=== PATIENT | male | born 1990 | race Caucasian/White ===

== ENCOUNTER 2018-06-29 15:16 | Emergency (ER) | payer OTHER ==
--- NOTE | 2018-06-29 15:31 | PDOC ---
Rapid Medical Evaluation Time Seen by Provider: 06/29/18 15:30 Medical Evaluation: 06/29/18 15:30 I have performed a brief in-person evaluation of this patient. 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 Discharge Disposition - Diagnosis Strain of fascia at thorax level - Referrals - Patient Instructions - Post Discharge Activity
[2018-06-29 15:33] VITALS: BP 112/70; PULSE 64; TEMP 98.3; BMI 26.6
[2018-06-29] MEDS ORDERED: KETOROLAC TROMETHAMINE 60 MG/2 ML VIAL IM ONE (16:37)
[2018-06-29] MEDS ORDERED: KETOROLAC TROMETHAMINE 60 MG/2 ML VIAL ONE ×2 (16:39→16:44)
--- NOTE | 2018-06-29 16:40 | PDOC ---
History of Present Illness - General Chief Complaint: Back Pain Stated Complaint: LOWER BACK PAIN Time Seen by Provider: 06/29/18 15:30 History Source: Patient Exam Limitations: No Limitations Past History - Travel Traveled outside of the country in the last 30 days: No Close contact w/someone who was outside of country & ill: No - Past Medical History Home Medications: Ambulatory Orders Cyclobenzaprine HCl [Flexeril -] 10 mg PO HS #10 tablet 06/29/18 Ibuprofen 800 mg PO TID #30 tablet 06/29/18 COPD: No - Suicide/Smoking/Psychosocial Hx Smoking History: Never smoked Have you smoked in the past 12 months: No Information on smoking cessation initiated: No Hx Alcohol Use: No Drug/Substance Use Hx: No Review of Systems - Review of Systems Able to Perform ROS?: Yes Comments:: 06/29/18 16:36 CONSTITUTIONAL: Absent: fever, chills, diaphoresis, generalized weakness, malaise, loss of appetite GASTROINTESTINAL: Absent: abdominal pain, abdominal distension, nausea, vomiting, diarrhea, constipation, melena, hematochezia GENITOURINARY: Absent: dysuria, frequency, urgency, hesitancy, hematuria, flank pain, genital pain MUSCULOSKELETAL: Present: low back pain Absent: arthralgia, joint swelling SKIN: Absent: rash, itching, pallor NEUROLOGIC: Absent: headache, focal weakness or paresthesias, dizziness, unsteady gait, seizure, mental status changes, bladder or bowel incontinence PSYCHIATRIC: Absent: anxiety, depression, suicidal or homicidal ideation, hallucinations. Is the patient limited Polish proficient: No *Physical Exam - Vital Signs Last Vital Signs Temp Pulse Resp BP Pulse Ox 98.3 F 64 18 112/70 100 06/29/18 15:31 06/29/18 15:31 06/29/18 15:31 06/29/18 15:31 06/29/18 15:31 - Physical Exam Comments: 06/29/18 16:36 GENERAL: Well developed, well nourished. Awake and alert. No acute distress. HEENT: Normocephalic, atraumatic. PERRLA, EOMI. No conjunctival pallor. Sclera are non- icteric. Moist mucous membranes. Oropharynx is clear. NECK: Supple. Full ROM. No JVD. Carotid pulses 2+ and symmetric, without bruits. No thyromegaly. No lymphadenopathy. CARDIOVASCULAR: Regular rate and rhythm. No murmurs, rubs, or gallops. Distal pulses are 2+ and symmetric. PULMONARY: No evidence of respiratory distress. Lungs clear to auscultation bilaterally. No wheezing, rales or rhonchi. ABDOMINAL: Soft. Non-tender. Non-distended. No rebound or guarding. No organomegaly. Normoactive bowel sounds. MUSCULOSKELETAL Normal range of motion at all joints. No bony deformities or tenderness. No CVA tenderness. EXTREMITIES: No cyanosis. No clubbing. No edema. No calf tenderness. SKIN: Warm and dry. Normal capillary refill. No rashes. No jaundice. NEUROLOGICAL: Alert, awake, appropriate. Cranial nerves 2-12 intact. No deficits to light touch and temperature in face, upper extremities and lower extremities. No motor deficits in the in face, upper extremities and lower extremities. Normoreflexic in the upper and lower extremities. Normal speech. Toes are down- going bilaterally. Gait is normal without ataxia. PSYCHIATRIC: Cooperative. Good eye contact. Appropriate mood and affect. Moderate Sedation - Procedure Monitoring Vital Signs: Procedure Monitoring Vital Signs Temperature 98.3 F 06/29/18 15:31 Pulse Rate 64 06/29/18 15:31 Respiratory Rate 18 06/29/18 15:31 Blood Pressure 112/70 06/29/18 15:31 O2 Sat by Pulse Oximetry (%) 100 06/29/18 15:31 Medical Decision Making - Medical Decision Making 06/29/18 16:36 -Pt with TTP of the L paraspinous muscles, L3-L5, with palpable knot consistent with muscle spasm. -No trauma, or fever. No saddle anesthesia or bladder/bowel incontinence. No CVA tenderness. -Pt is neurologically intact on exam with no focal findings. -Toradol given with relief of symptoms -DC home. Ortho follow up given for if symptoms do not resolve. -I discussed the physical exam findings, ancillary test results and final diagnoses with the patient. I answered all of the patient's questions. The patient was satisfied with the care received and felt comfortable with the discharge plan and treatment plan. The Patient agrees to follow up with the primary care physician/specialist within 24-72 hours. Return precautions were given. *DC/Admit/Observation/Transfer Diagnosis at time of Disposition: Thoracic back pain Qualifiers: Chronicity: acute Back pain laterality: right Qualified Code(s): M54.6 - Pain in thoracic spine - Discharge Dispostion Disposition: HOME Condition at time of disposition: Stable Decision to Admit order: No - Referrals Referrals: Maciej Caldwell MD, [facility] [Staff Physician] - Cayetano Cifuentes MD [Staff Physician] - - Patient Instructions Printed Discharge Instructions: DI for Thoracic Back Pain Additional Instructions: You have midback pain due to a muscle spasm. Please take ibuprofen 800 mg 3 times a day not to exceed 3000 mg a day. You were also prescribed Flexeril. Please take this medication every 8 hours for the first day. Then take the medication before you go to bed. Do not drive after taking this medication as it may make you sleepy. You may use warm compresses on your back to help with her symptoms. Please follow-up with your primary care doctor. If your symptoms do not resolve in 3-5 days, follow-up with orthopedics. A referral has been provided for you. Return to the emergency department if you have worsening back pain, bladder or bowel incontinence, numbness and tingling in her legs, changes in the way you walk, or any new or worsening symptoms. - Post Discharge Activity Forms/Work/School Notes: Back to Work
== END 2018-06-29 16:50 | disposition home or self-care (01) ==
LOC: JERFT 15:16
PROC: 3E0233Z Introduction of Anti-inflammatory into Muscle, Percutaneous Approach (ICD-10-PCS; principal; 2018-06-29)
DX: M54.6 Pain in thoracic spine (principal)
CPT/HCPCS: 99281-25

== ENCOUNTER 2018-10-08 11:08 | Emergency (ER) | payer OTHER | END 2018-10-08 11:37 | disposition home or self-care (01) | LOC: JER 11:08 → JERFT 11:37 ==

== ENCOUNTER 2019-07-25 14:09 | Emergency (ER) | payer OTHER ==
[2019-07-25 14:15] VITALS: BP 120/76; PULSE 77; TEMP 98.5; BMI 26.6
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
[2019-07-25 16:01] LABS: ALBUMIN 4.4 g/dl (3.4-5.0); BILIRUBIN,TOTAL 0.8 mg/dL (0.2-1); BLOOD UREA NITROGEN 23.1 mg/dL (7-18); CALCIUM 9.5 mg/dL (8.5-10.1); POTASSIUM 3.9 mmol/L (3.5-5.1); TOT PROT 7.2 g/dl (6.4-8.2)
== END 2019-07-25 15:20 | disposition home or self-care (01) ==
LOC: JERFT 14:09
DX: Z77.21 Contact with and (suspected) exposure to potentially hazardous body fluids (principal); Y35.811A Legal intervention involving manhandling, law enforcement official injured, initial encounter; Y93.89 Activity, other specified; Y92.89 Other specified places as the place of occurrence of the external cause; Y99.0 Civilian activity done for income or pay
CPT/HCPCS: 36415; 80053; 86317; 86704; 86706; 86803; 87340; 87389; 99283-25

== ENCOUNTER 2020-05-26 22:32 | Emergency (ER) | payer OTHER ==
[2020-05-26 22:41] VITALS: BP 118/82; PULSE 73; TEMP 98.3; BMI 25.0
== END 2020-05-26 23:33 | disposition home or self-care (01) ==
LOC: FER 22:32 → MERGE 22:32 → FER 23:33
DX: S80.01XA Contusion of right knee, initial encounter (principal)
CPT/HCPCS: 73562-TC-RT-FY; 99284-25

== ENCOUNTER 2020-08-22 19:38 | Emergency (ER) | payer OTHER ==
[2020-08-22 19:45] VITALS: BP 128/85; PULSE 85; TEMP 98.7; BMI 25.8
[2020-08-22] MEDS ORDERED: NAPROXEN 500 MG TABLET PO ONE (19:54)
[2020-08-22] MEDS ORDERED: NAPROXEN 500 MG TABLET ONE (19:56)
== END 2020-08-22 20:17 | disposition home or self-care (01) ==
LOC: FER 19:38
DX: M25.511 Pain in right shoulder (principal)
CPT/HCPCS: 73030-TC-RT-FY; 99283-25

== ENCOUNTER → 2020-09-10 | Day surgery (SDC) | payer OTHER | END | disposition home or self-care (01) | LOC: JRADIR 12:39 → MERGE 13:00 | PROVIDERS: ATTEND Orthopaedic Surgery | PROC: BP18YZZ Fluoroscopy of Right Shoulder using Other Contrast (ICD-10-PCS; principal; 2020-09-10) | PROC: BP38YZZ Magnetic Resonance Imaging (MRI) of Right Shoulder using Other Contrast (ICD-10-PCS; 2020-09-10) | DX: M25.511 Pain in right shoulder (principal) | CPT/HCPCS: 23350; 73040-TC-FY; 73222-TC ==

== ENCOUNTER 2021-08-14 22:43 | Emergency (ER) | payer OTHER ==
[2021-08-14 22:48] VITALS: BP 130/87; PULSE 88; TEMP 97.9; BMI 25.8
== END 2021-08-14 23:26 | disposition home or self-care (01) ==
LOC: FER 22:43
DX: S63.91XA Sprain of unspecified part of right wrist and hand, initial encounter (principal); S60.221A Contusion of right hand, initial encounter; Y04.8XXA Assault by other bodily force, initial encounter
CPT/HCPCS: 73130-TC-RT-FY; 99283-25

== ENCOUNTER 2021-12-21 20:00 | Emergency (ER) | payer OTHER ==
[2021-12-21] MEDS ORDERED: FLUORESCEIN NA 1 EA STRIP ONE (21:03)
[2021-12-21] MEDS ORDERED: TETRACAINE 0.5% OPHTH SOLN 2 ML BOTTLE ONE (21:03)
[2021-12-21 21:05] VITALS: BP 125/79; PULSE 74; RESP 16; TEMP 98.8; BMI 25.8
[2021-12-21] MEDS ORDERED: DIPHTH,PERTUSS(ACELL),TET 0.5 ML DISP.SYRIN IM ONE ×2 (21:08→21:24)
[2021-12-21] MEDS ORDERED: IBUPROFEN 400 MG TABLET (FP) PO ONE ×2 (21:13→21:24)
[2021-12-21] MEDS ORDERED: ACETAMINOPHEN 325 MG TABLET (FP) PO ONE (21:21)
[2021-12-21] MEDS ORDERED: ACETAMINOPHEN 325 MG TABLET (FP) ONE (21:24)
== END 2021-12-21 22:14 | disposition home or self-care (01) ==
LOC: FER 20:00
PROC: 3E0234Z Introduction of Serum, Toxoid and Vaccine into Muscle, Percutaneous Approach (ICD-10-PCS; principal; 2021-12-21)
DX: H57.11 Ocular pain, right eye (principal)
CPT/HCPCS: 90715; 99284-25

== ENCOUNTER 2022-01-16 17:17 | Emergency (ER) | payer OTHER ==
[2022-01-16 17:32] VITALS: BP 123/75; PULSE 76; RESP 16; TEMP 98.6; BMI 26.6
== END 2022-01-16 18:00 | disposition home or self-care (01) ==
LOC: FER 17:17
DX: S60.511A Abrasion of right hand, initial encounter (principal); Y35.811A Legal intervention involving manhandling, law enforcement official injured, initial encounter
CPT/HCPCS: 99281-25

== ENCOUNTER 2022-12-10 20:52 | Emergency (ER) | payer OTHER ==
[2022-12-10 21:03] VITALS: BP 114/81; PULSE 65; RESP 16; TEMP 98.2; BMI 12.0
[2022-12-10] MEDS ORDERED: NAPROXEN 500 MG TABLET PO ONE (21:33)
[2022-12-10] MEDS ORDERED: NAPROXEN 500 MG TABLET ONE (21:36)
== END 2022-12-10 21:38 | disposition home or self-care (01) ==
LOC: FER 20:52
DX: S16.1XXA Strain of muscle, fascia and tendon at neck level, initial encounter (principal); S29.012A Strain of muscle and tendon of back wall of thorax, initial encounter; M54.2 Cervicalgia; M25.519 Pain in unspecified shoulder; V43.62XA Car passenger injured in collision with other type car in traffic accident, initial encounter; Y93.I9 Activity, other involving external motion; Y92.009 Unspecified place in unspecified non-institutional (private) residence as the place of occurrence of the external cause
CPT/HCPCS: 99283-25

== ENCOUNTER 2023-07-29 22:27 | Emergency (ER) | payer OTHER ==
[2023-07-29 22:35] VITALS: BP 150/97; PULSE 107; RESP 16; TEMP 98.8; BMI 28.8
== END 2023-07-29 23:07 | disposition home or self-care (01) ==
LOC: FER 22:27
DX: M25.569 Pain in unspecified knee (principal); Z77.21 Contact with and (suspected) exposure to potentially hazardous body fluids; W25.XXXA Contact with sharp glass, initial encounter
CPT/HCPCS: 99283-25

== ENCOUNTER 2023-10-30 18:16 | Emergency (ER) | payer OTHER ==
[2023-10-30 18:40] VITALS: BP 139/80; PULSE 102; RESP 16; TEMP 99.3; BMI 38.0
== END 2023-10-30 20:04 | disposition home or self-care (01) ==
LOC: FER 18:16
DX: S60.511A Abrasion of right hand, initial encounter (principal); X58.XXXA Exposure to other specified factors, initial encounter
CPT/HCPCS: 73110-TC-RT-FY; 73130-TC-RT-FY; 99283-25

== ENCOUNTER 2024-02-14 19:24 | Emergency (ER) | payer OTHER ==
[2024-02-14 20:42] VITALS: BP 122/89; PULSE 78; RESP 15; TEMP 98.1; BMI 37.8
== END 2024-02-14 20:45 | disposition home or self-care (01) ==
LOC: FER 19:24
DX: S59.811A Other specified injuries right forearm, initial encounter (principal); S60.221A Contusion of right hand, initial encounter; Y35.811A Legal intervention involving manhandling, law enforcement official injured, initial encounter
CPT/HCPCS: 73110-TC-RT-FY; 73130-TC-RT-FY; 99283-25